=== PATIENT | female | born 1965 | race Caucasian/White ===

== ENCOUNTER → 2016-08-29 | Outpatient (CLI) | payer OTHER ==
--- NOTE | 2016-08-29 10:39 | BD ---
EXAMINATION TYPE: MG DEXA axial skeleton. DATE OF EXAM: 08/29/2016 CLINICAL HISTORY: Height: 62.75 inches Weight: 155 pounds FRAX RISK QUESTIONS: Alcohol (3 or more units per day): no Family History (Parent hip fracture): mother did not; unsure about father Glucocorticoids (More than 3mos): no (Ex: prednisone, prednisolone, methylprednisolone, dexamethasone, and hydrocortisone). History of Fracture in Adulthood: no Secondary Osteoporosis: 1. Type 1 Diabetes: no 2. Hyperthyroidism: no 3. Menopause before 45: no 4. Malnutrition: no 5. Chronic liver disease: no Rheumatoid Arthritis: no Current Tobacco Use: not now RISK FACTORS HISTORY OF: Surgery to Spine/Hip(right/left)/Wrist (right/left): no Family History of Osteoporosis: no Drink Alcohol: occasionally Active: no Diet low in dairy products/other sources of calcium: no Postmenopausal woman: yes Take estrogen and/or progesterone medications: yes How long: hormonal contraceptives over 10 years; just started taking progesterone(about a week) Lost more than 2 inches in height since high school: no Frequent falls: no Poor Health: no Hyperparathyroidism: no Adrenal Insufficiency: no MEDICATIONS: Prednisone or other steroids: no Thyroid Medications: no Osteoporosis Medications: no Additional Medications: Vitamin D EXAM MEASUREMENTS: Bone mineral densitometry was performed using the Spyra System. Bone mineral density as measured about the Lumbar spine is: ----- L1-L4(G/cm2): 1.224 T Score Values are as follows: ----- L2: -1.0 ----- L3: 1.5 ----- L4: 0.7 ----- L1-L4: 0.4 Bone mineral density BASELINE Bone mineral density about the R hip (g/cm2): 0.872 Bone mineral density about the L hip (g/cm2): 0.942 T Score values are as follows: -----R Neck: -1.2 -----L Neck: -0.7 -----R Total: -0.2 -----L Total: 0.2 Bone mineral density BASELINE IMPRESSION: Osteopenia (T Score between -2.5 and -1 as noted by T score values at the femoral neck level in the r ight hip. There is slightly increased risk of fracture and the patient may be considered for treatmen t. Re-Screen 2-5 years. NOTE: T-SCORE=SD OF THE YOUNG ADULT MEAN.
--- NOTE | 2016-08-29 13:56 | MM ---
Reason for exam: screening (asymptomatic). Last mammogram was performed 1 year and 1 month ago. History: Patient is postmenopausal and history of other cancer. Took hormonal contraceptives for 10 years beginning at age 19. Taking progesterone. Physical Findings: A clinical breast exam by your physician is recommended on an annual basis and results should be correlated with mammographic findings. MG Screening Mammo w CAD Bilateral CC and MLO view(s) were taken. Prior study comparison: July 15, 2015, bilateral MG 3d screening mammo w/cad. March 05, 2014, bilateral MG screening mammo w CAD. The breast tissue is almost entirely fat. There is no discrete abnormality. No significant changes when compared with prior studies. ASSESSMENT: Negative, BI-RAD 1 RECOMMENDATION: Routine screening mammogram of both breasts in 1 year.
== END | disposition home or self-care (01) ==
LOC: RADMAMWWP 09:47
PROVIDERS: ATTEND Family Medicine
DX: Z12.31 Encounter for screening mammogram for malignant neoplasm of breast (principal); M85.80 Other specified disorders of bone density and structure, unspecified site; Z13.820 Encounter for screening for osteoporosis
CPT/HCPCS: 77080; G0202

== ENCOUNTER → 2018-07-10 | Outpatient (CLI) | payer OTHER ==
[2018-07-10 11:46] VITALS: BP 121/80; PULSE 63; RESP 18; TEMP 96.6; BMI 29.5
--- NOTE | 2018-07-10 12:33 | P.HPOB ---
History of Present Illness H&P Date: 07/10/18 Chief Complaint: The patient is here for her routine gynecologic exam. This is a 52-year-old G2 PII within LMP of 2015. She is status post [facility] BSO in 2016 for benign reasons. The patient is without gynecologic complaints. Review of Systems The patient has been about 14 pounds over the last 3 years. She denies respiratory, cardiac, or G.I. problems. Past Medical History Past Medical History: Cancer, Hyperlipidemia (Diet controlled currently not on medication.) Additional Past Medical History / Comment(s): Osteopenia. 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 Colonization of the cervix in 1993 for dysplasia. Hysterectomy for uterine fibroids. History of Any Multi-Drug Resistant Organisms: None Reported Past Surgical History: Hysterectomy Additional Past Surgical History / Comment(s): CONE BIOPSY OF CERVIX 1993. [facility] BSO 2015. Past Anesthesia/Blood Transfusion Reactions: Postoperative Nausea & Vomiting (PONV) Past Psychological History: No Psychological Hx Reported Smoking Status: Former smoker Past Alcohol Use History: Occasional (3 per week) Additional Past Alcohol Use History / Comment(s): STARTED SMOKING AT AGE 17 QUIT 2007 SMOKED 1/2PPD Past Drug Use History: None Reported Additional History: She has been since 1990 and is sexually active. 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 - Past Family History Mother Family Medical History: Cancer, COPD, Diabetes Mellitus Additional Family Medical History / Comment(s): LUNG CANCER Father Family Medical History: Cancer, Diabetes Mellitus Additional Family Medical History / Comment(s): LUNG CANCER Medications and Allergies Home Medications Medication Instructions Recorded Confirmed Type Multivit with Calcium,Iron,Min 1 each PO DAILY 07/10/18 07/10/18 History [Women's Multivitamin] [place]-3 Fatty Acids/Fish Oil [Fish 1 each PO DAILY 07/10/18 07/10/18 History Oil 1,000 mg Softgel] Soy Isofla/Blk Cohosh/Mag Bark 155 mg PO DAILY 07/10/18 07/10/18 History [Estroven 155 mg Capsule] Allergies Allergy/AdvReac Type Severity Reaction Status Date / Time Penicillins Allergy Rash/Hives Verified 07/10/18 11:42 Sulfa (Sulfonamide Allergy Itching, Verified 07/10/18 11:42 Antibiotics) BURNING Exam Vital Signs Temp Pulse Resp BP Pulse Ox 07/10/18 11:42 96.6 F L 63 18 121/80 98 Intake and Output 07/09/18 07/10/18 07/10/18 22:59 06:59 14:59 Other: Weight 75.75 kg Height 5'3", weight 167 pounds, BMI 29.6. This is a well-developed well-nourished white female who is alert and oriented times 3 in no acute distress. HEENT: Within normal limits. NECK: Supple without mass or thyromegaly. CHEST AND LUNGS: Clear to auscultation. HEART: Regular rate and rhythm. BREASTS: Are without mass or discharge. AXILLARY EXAM: Negative for adenopathy. BACK: Negative for CVA tenderness. ABDOMEN: Soft, nontender, without palpable masses. PELVIC EXAM: External genitalia appears normal with minimal atrophy. Vagina appears normal with minimal atrophy. There is no evidence of prolapse. Bimanual examination is negative for mass or tenderness. RECTAL EXAM: Rectovaginal exam is negative for mass or tenderness and is negative for occult blood. EXTREMITIES: Nontender. IMPRESSION: 1. 52-year-old menopausal female status post [facility] BSO for benign reasons with normal gynecologic exam. 2. History of osteopenia by bone density test done on 08/29/2016. PLAN: 1. Pap smears have been discontinued. 2. Self breast awareness was discussed with the patient. 3. Screening mammogram is scheduled for 07/18/2018 and the order slip was given to the patient for this. 4. Osteoporosis prevention was discussed. I have stressed the importance of adequate calcium, vitamin D and regular exercise. Recommended amounts of calcium and vitamin D were also discussed. We will plan a repeating the bone density test in 2 years. 5. She was advised to return in one year for her annual well woman exam.
== END ==
LOC: WWCWWP 11:07
PROVIDERS: ATTEND Obstetrics & Gynecology
DX: Z53.9 Procedure and treatment not carried out, unspecified reason (principal)

== ENCOUNTER → 2018-07-24 | Outpatient (CLI) | payer OTHER ==
--- NOTE | 2018-07-25 12:31 | MM ---
Reason for exam: screening (asymptomatic). Last mammogram was performed 1 year and 11 months ago. History: Patient is postmenopausal and history of other cancer. Took hormonal contraceptives for 10 years beginning at age 19. Taking progesterone. Physical Findings: A clinical breast exam by your physician is recommended on an annual basis and results should be correlated with mammographic findings. MG 3D Screening Mammo W/Cad Bilateral CC and MLO view(s) were taken. Prior study comparison: August 29, 2016, bilateral MG screening mammo w CAD. July 15, 2015, bilateral MG 3d screening mammo w/cad. There are scattered fibroglandular densities. There is no discrete abnormality. No significant changes when compared with prior studies. ASSESSMENT: Negative, BI-RAD 1 RECOMMENDATION: Routine screening mammogram of both breasts in 1 year.
== END ==
LOC: RADMAMWWP 10:53
PROVIDERS: ATTEND Family Medicine
DX: Z12.31 Encounter for screening mammogram for malignant neoplasm of breast (principal)
CPT/HCPCS: 77063; 77067

== ENCOUNTER 2020-11-25 15:42 | Emergency (ER) | payer OTHER ==
[2020-11-25 15:48] VITALS: TEMP 98.3
[2020-11-25 15:58] VITALS: RESP 18
[2020-11-25 16:40] LABS: Basophils % (A) 0 %; Eosinophils % (A) 0 %; HCT 41.9 % (34.0-46.0); HGB 14.4 gm/dL (11.4-16.0); Lymphocytes # (A) 1.1 k/uL (1.0-4.8); Lymphocytes % (A) 24 %; MCH 30.9 pg (25.0-35.0); MCHC 34.4 g/dL (31.0-37.0); MCV 89.9 fL (80.0-100.0); Mean Platelet Volume 6.9; Monocytes # (A) 0.2 k/uL (0-1.0); Monocytes % (A) 4 %; Neutrophils # (A) 3.3 k/uL (1.3-7.7); Neutrophils % (A) 70 %; Platelet Count 261 k/uL (150-450); RBC 4.65 m/uL (3.80-5.40); RDW 12.8 % (11.5-15.5); WBC 4.7 k/uL (3.8-10.6)
[2020-11-25 16:47] LABS: ALT 38 U/L (4-34); AST 48 U/L (14-36); African American GFR (CKD) >90 (>60 ml/min/1.73 sqM); Albumin 4.2 g/dL (3.5-5.0); Alkaline Phosphatase 107 U/L (38-126); Anion Gap 10 mmol/L; Blood Urea Nitrogen 14 mg/dL (7-17); Calcium 8.9 mg/dL (8.4-10.2); Carbon Dioxide 24 mmol/L (22-30); Chloride 103 mmol/L (98-107); Glucose 100 mg/dL (74-99); Non-African American GFR(CKD) >90 (>60 ml/min/1.73 sqM); Potassium 4.3 mmol/L (3.5-5.1); Sodium 137 mmol/L (137-145); Total Bilirubin 0.1 mg/dL (0.2-1.3)
--- NOTE | 2020-11-25 16:53 | XR ---
EXAMINATION TYPE: XR chest 1V portable DATE OF EXAM: 11/25/2020 COMPARISON: NONE HISTORY: Cough TECHNIQUE: Single view FINDINGS: There is some linear density at the left lung base. Heart size is normal. There is no heart failure. Costophrenic angles are clear. Bony thorax is intact. IMPRESSION: Subsegmental atelectasis left lung base. Normal heart.
--- NOTE | 2020-11-25 16:55 | ED ---
URI HPI - General Chief Complaint: Upper Respiratory Infection Stated Complaint: COVID+, SOB Time Seen by Provider: 11/25/20 16:06 Source: patient Mode of arrival: ambulatory Limitations: no limitations - History of Present Illness Initial Comments: Patient is a healthy 55-year-old female presenting to the emergency Department with complaints of shortness of breath it's been increasing over the past couple days. She started having a mild cough, generalized body aches 5 days ago, she tested positive for Covid today at a local urgent care. She did want to go to her doctor's for possible chest x-ray due to increased pain when she is coughing and some mild shortness of breath however they told her to go into the ER for evaluation. She denies any chest pain at this time, she states she only gets some discomfort when she has coughing, feels burning in nature. She denies history of asthma, COPD, she is a nonsmoker. She takes no daily medications. He fevers or chills, her appetite has been relatively normal, she does not have any taste or smell, this started 2-3 days ago. She denies any nausea or vomiting, no diarrhea. She has no further complaints at this time. - Related Data Home Medications Medication Instructions Recorded Confirmed Ascorbic Acid [Vitamin C] 1,000 mg PO DAILY 11/25/20 11/25/20 Cholecalciferol (Vitamin D3) 125 mcg PO DAILY 11/25/20 11/25/20 [Vitamin D3 (125 MCG = 5,000 IU)] Cyanocobalamin (Vitamin B-12) 500 mcg PO DAILY 11/25/20 11/25/20 [Vitamin B-12] Zinc 50 mg PO DAILY 11/25/20 11/25/20 Previous Rx's Medication Instructions Recorded Albuterol Inhaler [Ventolin Hfa 1 puff INHALATION RT-QID PRN #1 11/25/20 Inhaler] dispenser Dexamethasone [Decadron] 6 mg PO DAILY 5 Days #5 tablet 11/25/20 Allergies Allergy/AdvReac Type Severity Reaction Status Date / Time Penicillins Allergy Rash/Hives Verified 11/25/20 17:02 Sulfa (Sulfonamide Allergy Itching, Verified 11/25/20 17:02 Antibiotics) BURNING Review of Systems ROS Statement: Those systems with pertinent positive or pertinent negative responses have been documented in the HPI. ROS Other: All systems not noted in ROS Statement are negative. Past Medical History Past Medical History: Cancer, Hyperlipidemia Additional Past Medical History / Comment(s): Osteopenia. 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 Colonization of the cervix in 1993 for dysplasia. Hysterectomy for uterine fibroids. History of Any Multi-Drug Resistant Organisms: None Reported Past Surgical History: Hysterectomy Additional Past Surgical History / Comment(s): CONE BIOPSY OF CERVIX 1993. [facility] BSO 2015. Past Anesthesia/Blood Transfusion Reactions: Postoperative Nausea & Vomiting (PONV) Past Psychological History: No Psychological Hx Reported Smoking Status: Former smoker Past Alcohol Use History: Occasional Past Drug Use History: None Reported - Past Family History Mother Family Medical History: Cancer, COPD, Diabetes Mellitus Additional Family Medical History / Comment(s): LUNG CANCER Father Family Medical History: Cancer, Diabetes Mellitus Additional Family Medical History / Comment(s): LUNG CANCER General Exam - General Exam Comments Initial Comments: GENERAL: Patient is well-developed and well-nourished. Patient is nontoxic and in no acute distress. HEAD: Atraumatic, normocephalic. EYES: Pupils equal round and reactive to light, extraocular movements intact, sclera anicteric, conjunctiva are normal. Eyelids were unremarkable. ENT: Nares patent, oropharynx clear without exudates. Moist mucous membranes. NECK: Normal range of motion, supple without lymphadenopathy or JVD. LUNGS: Unlabored respirations. Very mild wheezes noted on the left side. HEART: Regular rate and rhythm without murmurs, rubs or gallops. ABDOMEN: Soft, nontender, normoactive bowel sounds. No guarding, no rebound. No masses appreciated. : Deferred MUSCULOSKELETAL: Normal extremities with adequate strength and normal range of motion, no pitting or edema. No clubbing or cyanosis. NEUROLOGICAL: Patient is alert and oriented x 3. Motor and sensory are also intact. Cranial nerves II through XII grossly intact. Symmetrical smile. Normal speech, normal gait. PSYCH: Normal mood, normal affect. SKIN: Warm, Dry, normal turgor, no rashes or lesions noted. Limitations: no limitations Course Vital Signs 11/25/20 11/25/20 15:44 15:51 Temperature 98.3 F Pulse Rate 88 Respiratory 20 18 Rate Blood Pressure 136/85 O2 Sat by Pulse 93 L Oximetry Medical Decision Making - Medical Decision Making Patient is a 55-year-old female here with a mild cough, fatigue and some burning discomfort when she coughs or the past 5 days. She tested positive for covid today and came in for evaluation for some mild shortness of breath. Denies history of asthma, COPD, she is a nonsmoker. She takes no medications, vitals are stable upon arrival. Chest x-ray today shows some segmental atelectasis in the left lung base, no other acute process. Labs are within normal limits. [facility] did agree to monoclonal antibody therapy today. She does meet criteria. She was given therapy, no acute side effects. Patient was given a dose of Decadron here in the ER and will be continued on this as an outpatient, also give her an inhaler. She is stable for discharge. She is in agreement with this plan of care. She can follow up with her primary care. Return parameters were discussed with her and she verbalized understanding. Case discussed with Dr. Christopher. - Lab Data Result diagrams: 11/25/20 16:34 11/25/20 16:34 Lab Results 11/25/20 11/25/20 Range/Units 16:34 16:34 WBC 4.7 (3.8-10.6) k/uL RBC 4.65 (3.80-5.40) m/uL Hgb 14.4 (11.4-16.0) gm/dL Hct 41.9 (34.0-46.0) % MCV 89.9 (80.0-100.0) fL MCH 30.9 (25.0-35.0) pg MCHC 34.4 (31.0-37.0) g/dL RDW 12.8 (11.5-15.5) % Plt Count 261 (150-450) k/uL MPV 6.9 Neutrophils % 70 % Lymphocytes % 24 % Monocytes % 4 % Eosinophils % 0 % Basophils % 0 % Neutrophils # 3.3 (1.3-7.7) k/uL Lymphocytes # 1.1 (1.0-4.8) k/uL Monocytes # 0.2 (0-1.0) k/uL Eosinophils # 0.0 (0-0.7) k/uL Basophils # 0.0 (0-0.2) k/uL Sodium 137 (137-145) mmol/L Potassium 4.3 (3.5-5.1) mmol/L Chloride 103 (98-107) mmol/L Carbon Dioxide 24 (22-30) mmol/L Anion Gap 10 mmol/L BUN 14 (7-17) mg/dL Creatinine 0.73 (0.52-1.04) mg/dL Est GFR (CKD-EPI)AfAm >90 (>60 ml/min/1.73 sqM) Est GFR (CKD-EPI)NonAf >90 (>60 ml/min/1.73 sqM) Glucose 100 H (74-99) mg/dL Calcium 8.9 (8.4-10.2) mg/dL Total Bilirubin 0.1 L (0.2-1.3) mg/dL AST 48 H (14-36) U/L ALT 38 H (4-34) U/L Alkaline Phosphatase 107 (38-126) U/L Total Protein 7.0 (6.3-8.2) g/dL Albumin 4.2 (3.5-5.0) g/dL Disposition Clinical Impression: COVID-19, Dyspnea Disposition: HOME SELF-CARE Condition: Stable Instructions (If sedation given, give patient instructions): Coronavirus Disease 2019 (COVID-19) Additional Instructions: Please return to the Emergency Department if symptoms worsen or any other concerns. Take steroids daily as prescribed, starting tomorrow. Use inhaler as needed for cough, shortness of breath. Continue taking your vitamins daily. Follow up with your primary care. Prescriptions: Dexamethasone [Decadron] 6 mg PO DAILY 5 Days #5 tablet Albuterol Inhaler [Ventolin Hfa Inhaler] 1 puff INHALATION RT-QID PRN #1 dispenser PRN Reason: Shortness Of Breath Is patient prescribed a controlled substance at d/c from ED?: No Referrals: Milana Hayden DO [Primary Care Provider] - 1-2 days Time of Disposition: 18:45
[2020-11-25] MEDS ORDERED: CASIRIVIMAB (REGN10933) (EUA) 600 MG, IMDEVIMAB (REGN10987) (EUA) 600 MG in SODIUM CHLO... IVPB ONE (17:00)
[2020-11-25] MEDS ORDERED: SODIUM CHLORIDE 0.9% 50 ML IVPB ONE (17:30)
[2020-11-25] MEDS ORDERED: DEXAMETHASONE SOD PHOSPHATE 10 MG/ML 1 ML VIAL IV STA (18:14)
[2020-11-25 19:04] VITALS: BP 128/75; PULSE 74
== END 2020-11-25 19:04 | disposition home or self-care (01) ==
LOC: EC 15:42
DX: U07.1 COVID-19 (principal); E78.5 Hyperlipidemia, unspecified; Z87.891 Personal history of nicotine dependence; Z88.0 Allergy status to penicillin; Z88.2 Allergy status to sulfonamides
CPT/HCPCS: 36415; 80053; 85025; 71045; 96365; 96375; 99285; J1100

== ENCOUNTER → 2021-02-23 | Outpatient (CLI) | payer OTHER ==
[2021-02-23 09:40] VITALS: BP 123/86; PULSE 76; RESP 18; TEMP 97.9
--- NOTE | 2021-02-23 10:24 | P.HPOB ---
History of Present Illness H&P Date: 02/23/21 Chief Complaint: The patient is here for her routine gynecologic exam and ma mmogram. This is a 55-year-old with an LMP of 2015. She is status post TANIA/BSO in 2016 for benign reasons. She is without gynecologic complaints. Review of Systems The patient has gained 12 pounds over the last 2 years. She denies respiratory, cardiac, or G.I. problems. Past Medical History Past Medical History: Cancer, Hyperlipidemia Additional Past Medical History / Comment(s): Osteopenia. 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 Colonization of the cervix in 1993 for dysplasia. Hyst erectomy for uterine fibroids. History of Any Multi-Drug Resistant Organisms: None Reported Past Surgical History: Hysterectomy Additional Past Surgical History / Comment(s): CONE BIOPSY OF CERVIX 1993. [facility] BSO 2015. Past Anesthesia/Blood Transfusion Reactions: Postoperative Nausea & Vomiting (PONV) Past Psychological History: No Psychological Hx Reported Smoking Status: Former smoker Past Alcohol Use History: Occasional (3 per week) Additional Past Alcohol Use History / Comment(s): STARTED SMOKING AT AGE 17 QUIT 2007 SMOKED 1/2PPD Past Drug Use History: None Reported Additional History: She has been since 1990 and is infrequently sexually active due to her 's health issues. She works at [employer]. - Past Family History Mother Family Medical History: Cancer, COPD, Diabetes Mellitus Additional Family Medical History / Comment(s): LUNG CANCER Father Family Medical History: Cancer, Diabetes Mellitus Additional Family Medical History / Comment(s): LUNG CANCER Medications and Allergies Home Medications Medication Instructions Recorded Confirmed Type Ascorbic Acid [Vitamin C] 1,000 mg PO DAILY 11/25/20 02/23/21 History Cholecalciferol (Vitamin D3) 125 mcg PO DAILY 11/25/20 02/23/21 History [Vitamin D3 (125 MCG = 5,000 IU)] Cyanocobalamin (Vitamin B-12) 500 mcg PO DAILY 11/25/20 02/23/21 History [Vitamin B-12] Zinc 50 mg PO DAILY 11/25/20 02/23/21 History Allergies Allergy/AdvReac Type Severity Reaction Status Date / Time Penicillins Allergy Rash/Hives Verified 02/23/21 09:33 Sulfa (Sulfonamide Allergy Itching, Verified 02/23/21 09:33 Antibiotics) BURNING Exam Vital Signs Temp Pulse Resp BP Pulse Ox 02/23/21 09:34 97.9 F 76 18 123/86 95 Intake and Output 02/22/21 02/23/21 02/23/21 22:59 06:59 14:59 Other: Weight 81.193 kg Height 5 feet 3 inches, weight 179 pounds, BMI 31.7. This is a well-developed well-nourished white female who is alert and oriented times 3 in no acute distress. HEENT: Within normal limits. NECK: Supple without mass or thyromegaly. CHEST AND LUNGS: Clear to auscultation. HEART: Regular rate and rhythm. BREASTS: Are without mass or discharge. AXILLARY EXAM: Negative for adenopathy. BACK: Negative for CVA tenderness. ABDOMEN: Soft, nontender, without palpable masses. PELVIC EXAM: External genitalia appears normal mild atrophy. Vagina appears normal with mild atrophy. There is no evidence of prolapse. Bimanual examination is negative for mass or tenderness. RECTAL EXAM: Rectovaginal exam is negative for mass or tenderness and is negative for occult blood. EXTREMITIES: Nontender. IMPRESSION: 1. A 55-year-old menopausal female who is status post TANIA/BSO for benign reasons with normal gynecologic exam. 2. History of osteopenia. PLAN: 1. Pap smears have been discontinued. 2. Self breast awareness was discussed with the patient. We have also discussed symptoms associated with inflammatory breast cancer. 3. Screening mammogram will be done today. 4. Osteoporosis prevention was discussed. I have stressed the importance of adequate calcium, vitamin D and regular exercise. Recommended amounts of calcium and vitamin D were also discussed. I have recommended repeating bone density testing since her last one done in 2017 showed osteopenia. The order slip was given to the patient for this. 5. She has not gotten a Covid vaccination and she states this is because she did have Covid in October 2020. She understands the CDC does recommend she still get vaccinated. She will consider this. 6. Colorectal cancer screening has been done with Alexy through her PCP. She will continue to follow-up with her PCP for colorectal cancer screening. 7. She was advised to return in one year for her annual well woman exam.
== END | disposition home or self-care (01) ==
LOC: WWCWWP 09:25
PROVIDERS: ATTEND Obstetrics & Gynecology
DX: Z12.31 Encounter for screening mammogram for malignant neoplasm of breast (principal)
CPT/HCPCS: 77063; 77067

== ENCOUNTER → 2022-03-22 | Outpatient (CLI) | payer OTHER ==
--- NOTE | 2022-03-23 07:51 | MM ---
Reason for Exam: Screening (asymptomatic). Last mammogram was performed 1 year(s) and 1 month(s) ago. Patient History: Menarche at age 10. First Full-Term at age 29. Late child-bearing (after 29). Left ovary removed at age 50. Right ovary removed at age 50. Hysterectomy at age 50. Postmenopausal. Other cancer, age 27. Progesterone, from age 50 until age 51. Hormonal Contraceptives for 10 years from age 19 until age 32. Risk Values: Cassia 5 year model risk: 1.9%. NCI Lifetime model risk: 11.7%. Prior Study Comparison: 08/29/2016 Bilateral Screening Mammogram, [facility]. 07/24/2018 Bilateral Screening Mammogram, [facility]. 02/23/2021 Bilateral Screening Mammogram, [facility]. Tissue Density: There are scattered fibroglandular densities. Findings: Analyzed By CAD. There is no suspicious group of microcalcifications or new suspicious mass in either breast. Overall Assessment: Negative, BI-RAD 1 Management: Screening Mammogram of both breasts in 1 year. A clinical breast exam by your physician is recommended on an annual basis and results should be correlated with mammographic findings. [facility] will attempt to contact patient to return for supplemental views and ultrasound if indicated. Electronically signed and approved by: Tej Vance DO
== END | disposition home or self-care (01) ==
LOC: RADMAMWWP 07:10
PROVIDERS: ATTEND Family Medicine
DX: Z12.31 Encounter for screening mammogram for malignant neoplasm of breast (principal); Z78.0 Asymptomatic menopausal state
CPT/HCPCS: 77063; 77067

== ENCOUNTER → 2023-04-04 | Outpatient (CLI) | payer OTHER ==
[2023-04-04 09:48] VITALS: BP 135/83; PULSE 75; RESP 16; TEMP 97.8
--- NOTE | 2023-04-04 09:53 | P.HPOB ---
History of Present Illness H&P Date: 04/04/23 Chief Complaint: The patient is here for her routine gynecologic exam and ma mmogram. This is a 57-year-old with an LMP of 2016. She is status post TANIA/BSO for benign reasons. She is without gynecologic complaints. Review of Systems The patient has lost 4 pounds over the last year. She has been trying to lose weight and is now doing something through [employer]. She denies respiratory, cardiac, or G.I. problems. Past Medical History Past Medical History: Cancer, Hyperlipidemia Additional Past Medical History / Comment(s): Osteopenia. 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 Colonization of the cervix in 1993 for dysplasia. Hysterectomy for uterine fibroids. History of Any Multi-Drug Resistant Organisms: None Reported Past Surgical History: Hysterectomy Additional Past Surgical History / Comment(s): CONE BIOPSY OF CERVIX 1993. TANIA BSO 2015. Past Anesthesia/Blood Transfusion Reactions: Postoperative Nausea & Vomiting (PONV) Past Psychological History: No Psychological Hx Reported Smoking Status: Former smoker Past Alcohol Use History: Occasional (3-4 glasses of wine per week.) Additional Past Alcohol Use History / Comment(s): STARTED SMOKING AT AGE 17 QUIT 2007 SMOKED 1/2PPD Past Drug Use History: None Reported Additional History: She has been since 1990 and has been infrequently sexually active due to her 's health issues. She works at [employer]. - Past Family History Mother Family Medical History: Cancer, COPD, Diabetes Mellitus Additional Family Medical History / Comment(s): LUNG CANCER Father Family Medical History: Cancer, Diabetes Mellitus Additional Family Medical History / Comment(s): LUNG CANCER Medications and Allergies Home Medications Medication Instructions Recorded Confirmed Type Ascorbic Acid [Vitamin C] 1,000 mg PO DAILY 11/25/20 04/04/23 History Cholecalciferol (Vitamin D3) 125 mcg PO DAILY 11/25/20 04/04/23 History [Vitamin D3 (125 MCG = 5,000 IU)] Cyanocobalamin (Vitamin B-12) 500 mcg PO DAILY 11/25/20 04/04/23 History [Vitamin B-12] Zinc 50 mg PO DAILY 11/25/20 04/04/23 History Allergies Allergy/AdvReac Type Severity Reaction Status Date / Time Penicillins Allergy Rash/Hives Verified 04/04/23 09:25 Sulfa (Sulfonamide Allergy Itching, Verified 04/04/23 09:25 Antibiotics) BURNING Exam Vital Signs Temp Pulse Resp BP Pulse Ox 04/04/23 09:26 97.8 F 75 16 135/83 97 Intake and Output 04/03/23 04/04/23 04/04/23 22:59 06:59 14:59 Other: Weight 79.379 kg Height 5 feet 3 inches, weight 175 pounds, BMI 31.0. This is a well-developed well-nourished white female who is alert and oriented times 3 in no acute distress. HEENT: Within normal limits. NECK: Supple without mass or thyromegaly. CHEST AND LUNGS: Clear to auscultation. HEART: Regular rate and rhythm. BREASTS: Are without mass or discharge. AXILLARY EXAM: Negative for adenopathy. BACK: Negative for CVA tenderness. ABDOMEN: Soft, nontender, without palpable masses. PELVIC EXAM: External genitalia appears normal with mild atrophy. Vagina appears normal mild atrophy. There is no evidence of prolapse. Bimanual examination is negative for mass or tenderness. RECTAL EXAM: Rectovaginal exam is negative for mass or tenderness and is negative for occult blood. EXTREMITIES: Nontender. IMPRESSION: 1. 57-year-old menopausal female status post TANIA/BSO for benign reasons, with normal gynecologic exam. 2. History of osteopenia. PLAN: 1. Pap smears have been discontinued. 2. Self breast awareness was discussed with the patient. We have also discussed symptoms associated with inflammatory breast cancer. 3. Screening mammogram will be done today. 4. Osteoporosis prevention was discussed. I have stressed the importance of adequate calcium, vitamin D and regular exercise. Recommended amounts of calcium and vitamin D were also discussed. I have recommended repeating the bone density test and the order slip was given to the patient for this. She states she would like to check with her insurance company to check on her coverage. 5. Colorectal cancer screening was discussed. She states she had a Cologuard testing done 2 years ago. She will discuss future colorectal cancer testing with her PCP. 6. She was advised to return in one year for her annual well woman exam.
--- NOTE | 2023-04-05 15:52 | MM ---
Reason for Exam: Screening (asymptomatic). Last mammogram was performed 1 year(s) and 1 month(s) ago. Patient History: Menarche at age 10. First Full-Term at age 29. Late child-bearing (after 29). Left ovary removed at age 50. Right ovary removed at age 50. Hysterectomy at age 50. Postmenopausal. Other cancer, age 27. Progesterone, from age 50 until age 51. Hormonal Contraceptives for 10 years from age 19 until age 32. Risk Values: Cassia 5 year model risk: 2.0%. NCI Lifetime model risk: 11.4%. Prior Study Comparison: 07/24/2018 Bilateral Screening Mammogram, [facility]. 02/23/2021 Bilateral Screening Mammogram, [facility]. 03/22/2022 Bilateral MG 3D screening mammo w/cad, [facility]. Tissue Density: There are scattered fibroglandular densities. Findings: Analyzed By CAD. Pattern appears symmetrical and stable. No suspicious groups of microcalcifications, spiculated or lobular masses, architectural distortion or other secondary signs of malignancy are mammographically apparent. Overall Assessment: Benign, BI-RAD 2 Management: Screening Mammogram of both breasts in 1 year. A negative mammogram report should not preclude additional follow up of suspicious palpable abnormalities. Patient should continue monthly self breast exam. A clinical breast exam by your physician is recommended on an annual basis and results should be correlated with mammographic findings. Electronically signed and approved by: Carlos Palmer D.O. Radiologis
== END ==
LOC: WWCWWP 09:18
PROVIDERS: ATTEND Obstetrics & Gynecology
DX: Z12.31 Encounter for screening mammogram for malignant neoplasm of breast (principal); M85.80 Other specified disorders of bone density and structure, unspecified site; E78.5 Hyperlipidemia, unspecified; Z78.0 Asymptomatic menopausal state; Z87.891 Personal history of nicotine dependence; Z88.0 Allergy status to penicillin; Z88.2 Allergy status to sulfonamides; Z90.710 Acquired absence of both cervix and uterus; Z90.722 Acquired absence of ovaries, bilateral; Z85.89 Personal history of malignant neoplasm of other organs and systems
CPT/HCPCS: 77063; 77067

== ENCOUNTER → 2023-09-04 | Outpatient (CLI) | payer OTHER ==
--- NOTE | 2023-09-05 07:46 | BD ---
EXAMINATION TYPE: Axial Bone Density DATE OF EXAM: 09/04/2023 CLINICAL HISTORY: 57 years old Female. ICD-10 CODE: Z78.0 ASYMPTOMATIC MENOPAUSAL STATE Height: 62.5in Weight: 175lb FRAX RISK QUESTIONS: Secondary Osteoporosis: RISK FACTORS HISTORY OF: MEDICATIONS: EXAM MEASUREMENTS: Bone mineral densitometry was performed using the Hologic System. Bone mineral density as measured about the Lumbar spine is: ----- L1-L4(G/cm2): 1.161 T Score Values are as follows: ----- L1: -1.4 ----- L2: -0.5 ----- L3: 0.5 ----- L4: 0.3 ----- L1-L4: -0.2 Z Score Values are as follows: ----- L1: -0.8 ----- L2: 0.1 ----- L3: 1.1 ----- L4: 0.9 ----- L1-L4: 0.5 Bone mineral density has: Decreased -5.1% since study of: 08-29-16 Bone mineral density about the R hip (g/cm2): 0.950 Bone mineral density about the L hip (g/cm2): 1.008 T Score values are as follows: -----R Neck: -1.4 -----L Neck: -0.9 -----R Total: -0.5 -----L Total: 0.0 Z Score values are as follows: -----R Neck: -0.5 -----L Neck: 0.0 -----R Total: 0.1 -----L Total: 0.5 Bone mineral density has: Decreased -2.8% since study of: 08-29-16 FRAX%s: The graph provided illustrates a 7.1% chance for a major osteoporotic fx and a 0.5% chance fo r the hips probability for fx in 10 years time. IMPRESSION: Normal (Values between +1 and -1 indicate normal bone mass). Consider repeating this study in 5 year s or sooner if there is some new clinical indication. NOTE: T-SCORE=SD OF THE YOUNG ADULT MEAN.
--- NOTE | 2023-09-06 08:54 | P.PN ---
Progress Note - Text Progress Note Date: 09/06/23 OUTPATIENT FOLLOW-UP NOTE TEST(S)/RESULTS: Bone density test done on 09/04/2023 shows osteopenia with mild decreases from her 2017 study METHOD OF NOTIFICATION: The patient was notified by phone on 09/06/2023. PATIENT COMMENTS: DIAGNOSIS: Osteopenia. DISCUSSION: We have discussed how it is important to continue to get adequate calcium, vitamin D, and regular exercise. We have reviewed foods that contain calcium and how much I would like her to shoot for. All of her questions were answered. We will plan on repeating the bone density test in 2 to 3 years PLAN: As above.
== END | disposition home or self-care (01) ==
LOC: RADBDWWP 10:53
PROVIDERS: ATTEND Obstetrics & Gynecology
DX: M85.89 Other specified disorders of bone density and structure, multiple sites (principal); Z78.0 Asymptomatic menopausal state
CPT/HCPCS: 77080

== ENCOUNTER → 2024-09-03 | Outpatient (CLI) | payer OTHER ==
[2024-09-03 09:55] VITALS: BP 138/87; PULSE 70; RESP 16; TEMP 98
--- NOTE | 2024-09-03 10:47 | MM ---
Reason for Exam: Screening (asymptomatic). Last mammogram was performed 1 year(s) and 5 month(s) ago. Patient History: Menarche at age 10. First Full-Term at age 29. Late child-bearing (after 29). Left ovary removed at age 50. Right ovary removed at age 50. Hysterectomy at age 50. Postmenopausal. Other cancer, age 27. Progesterone, from age 50 until age 51. Hormonal Contraceptives for 10 years from age 19 until age 32. Risk Values: Cassia 5 year model risk: 2.1%. NCI Lifetime model risk: 11.2%. Prior Study Comparison: 02/23/2021 Bilateral Screening Mammogram, [facility]. 03/22/2022 Bilateral MG 3D screening mammo w/cad, [facility]. 04/04/2023 Bilateral MG 3D screening mammo w/cad, [facility]. Tissue Density: There are scattered areas of fibroglandular density. Findings: Analyzed By CAD. Benign-appearing left axillary lymph nodes are redemonstrated. There is no suspicious group of microcalcifications or new suspicious mass in either breast. Overall Assessment: Negative, BI-RAD 1 Management: Screening Mammogram of both breasts in 1 year. . Patient should continue monthly self-breast exams. A clinical breast exam by your physician is recommended on an annual basis. This exam should not preclude additional follow-up of suspicious palpable abnormalities. Note on Cassia scores and lifetime risk: 1. A Cassia score greater than 3% is considered moderate risk. If this is the case, consider specialist referral to assess eligibility for a risk reducing agent. 2. If overall lifetime risk for the development of breast cancer is 20% or higher, the patient may qualify for future screening with alternating mammogram and breast MRI. [facility], , 09/03/2024 10:44 AM. Electronically signed and approved by: Ovi Jhaveri M.D.
--- NOTE | 2024-09-03 12:45 | P.HPOB ---
History of Present Illness H&P Date: 09/03/24 Chief Complaint: The patient is here for her routine gynecologic exam and ma mmogram. This is a 58-year-old G2, P2 with an LMP of 2015. The patient is status post TANIA/BSO for benign reasons. She is without gynecologic complaints. Review of Systems The patient has gained 10 pounds over the last year. She denies respiratory, cardiac, or G.I. problems. Past Medical History Past Medical History: Cancer, Hyperlipidemia Additional Past Medical History / Comment(s): Osteopenia. 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 Colonization of the cervix in 1993 for dysplasia. Hysterectomy for uterine fibroids. History of Any Multi-Drug Resistant Organisms: None Reported Past Surgical History: Hysterectomy Additional Past Surgical History / Comment(s): CONE BIOPSY OF CERVIX 1993. TANIA BSO 2015. Past Anesthesia/Blood Transfusion Reactions: Postoperative Nausea & Vomiting (PONV) Past Psychological History: No Psychological Hx Reported Smoking Status: Former smoker Past Alcohol Use History: Occasional (2-3 drinks per week.) Additional Past Alcohol Use History / Comment(s): STARTED SMOKING AT AGE 17 QUIT 2007 SMOKED 1/2PPD Past Drug Use History: None Reported Additional History: She has been since 1990 and is infrequently sexually active. 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 - Past Family History Mother Family Medical History: Cancer, COPD, Diabetes Mellitus Additional Family Medical History / Comment(s): LUNG CANCER Father Family Medical History: Cancer, Diabetes Mellitus Additional Family Medical History / Comment(s): LUNG CANCER Medications and Allergies Home Medications Medication Instructions Recorded Confirmed Type Cholecalciferol (Vitamin D3) 125 mcg PO DAILY 11/25/20 09/03/24 History [Vitamin D3 (125 MCG = 5,000 IU)] Cyanocobalamin (Vitamin B-12) 500 mcg PO DAILY 11/25/20 09/03/24 History [Vitamin B-12] Zinc 50 mg PO DAILY 11/25/20 09/03/24 History Metoprolol Succinate [[place]sp[place] 25 mg PO DAILY 09/03/24 09/03/24 History Sprinkle] Allergies Allergy/AdvReac Type Severity Reaction Status Date / Time Penicillins Allergy Rash/Hives Verified 09/03/24 09:45 Sulfa (Sulfonamide Allergy Itching, Verified 09/03/24 09:45 Antibiotics) BURNING Exam Vital Signs Temp Pulse Resp BP Pulse Ox 09/03/24 09:47 98.0 F 70 16 138/87 95 Intake and Output 09/02/24 09/03/24 09/03/24 22:59 06:59 14:59 Other: Weight 83.915 kg Height 5 feet 3 inches, weight 185 pounds, BMI 32.8. This is a well-developed well-nourished white female who is alert and oriented times 3 in no acute distress. HEENT: Within normal limits. NECK: Supple without mass or thyromegaly. CHEST AND LUNGS: Clear to auscultation. HEART: Regular rate and rhythm. BREASTS: Are without mass or discharge. AXILLARY EXAM: Negative for adenopathy. BACK: Negative for CVA tenderness. ABDOMEN: Soft, nontender, without palpable masses. PELVIC EXAM: External genitalia appears normal with mild atrophy. Vagina appears normal with mild atrophy. There is no evidence of prolapse. Bimanual examination is negative for mass or tenderness. RECTAL EXAM: Rectovaginal exam is negative for mass or tenderness and is negative for occult blood. EXTREMITIES: Nontender. IMPRESSION: 1. 58 year-old menopausal female status post TANIA/BSO for benign reasons, with normal gynecologic exam. 2. History of osteopenia. PLAN: 1. Pap smears have been discontinued. 2. Self breast awareness was discussed with the patient. We have also discussed symptoms associated with inflammatory breast cancer. 3. Screening mammogram was done today. 4. Osteoporosis prevention was discussed. I have stressed the importance of adequate calcium, vitamin D and regular exercise. Recommended amounts of calcium and vitamin D were also discussed. We will plan on repeating the bone density test in 1 to 2 years. 5. She states she is due for her first colonoscopy and will arrange this through her PCP. 6. Weight control was discussed. I have stressed the importance of good nutrition, regular meals, adequate fiber, and regular exercise. 7. She was advised to return in one year for her annual well woman exam.
== END ==
LOC: WWCWWP 09:30
PROVIDERS: ATTEND Obstetrics & Gynecology
DX: Z01.419 Encounter for gynecological examination (general) (routine) without abnormal findings (principal); Z12.31 Encounter for screening mammogram for malignant neoplasm of breast; M85.80 Other specified disorders of bone density and structure, unspecified site; Z78.0 Asymptomatic menopausal state; Z87.891 Personal history of nicotine dependence; Z88.0 Allergy status to penicillin; Z88.2 Allergy status to sulfonamides
CPT/HCPCS: 77063; 77067